=== PATIENT | female | born 1985 | race Caucasian/White ===

== ENCOUNTER → 2021-02-18 | Outpatient (CLI) | payer OTHER ==
[~2021-02-18] MED LIST: IBUPROFEN600 MG PO; NORCO 7.5-3251 EACH PO
== END ==
LOC: EXRD 14:17
DX: Z13.820 Encounter for screening for osteoporosis (principal); M85.88 Other specified disorders of bone density and structure, other site; M85.852 Other specified disorders of bone density and structure, left thigh
CPT/HCPCS: 77080